=== PATIENT | female | born 1990 | race African-American/Black ===

== ENCOUNTER 2020-01-07 20:40 | Emergency (ER) | payer MEDICAID ==
[~2020-01-07] VITALS: Ht 172.7 cm; Wt 73.0 kg
[2020-01-07] MEDS ORDERED: LIDOCAINE 1%/EPI 1:100,000 10 ML VIAL IJ ONE (21:30)
[2020-01-07] MEDS ORDERED: BACITRACIN ZINC OINT UDPKT TOP ONE (21:30)
[2020-01-07] MEDS ORDERED: LIDOCAINE HCL/EPINEPHRINE 1%-EPI 1:100,000 20 ML VIAL INFIL ONE (21:45)
[2020-01-07] MEDS ORDERED: MORPHINE SULFATE 10 MG/ML CPJ IM ONE (21:45)
[2020-01-07] MEDS ORDERED: CEFAZOLIN 1000MG PREMIX 50 ML IV ONE (21:45)
[2020-01-07] MEDS ORDERED: ONDANSETRON HCL 4MG/2ML INJ IV ONE (21:45)
[2020-01-07] MEDS ORDERED: MORPHINE SULFATE 2 MG/ML CPJ (NOT FOR IM USE) IV ONE (21:45)
[2020-01-07 23:21] LABS: CHLORIDE 108 mEq/L (98-107)
[2020-01-07 23:23] LABS: HCG SCREEN NEGATIVE
[2020-01-08 00:50] VITALS: BP 147/87
== END 2020-01-08 01:12 | disposition home or self-care (01) ==
LOC: ER 20:40
DX: S01.81XA Laceration without foreign body of other part of head, initial encounter (principal); S80.02XA Contusion of left knee, initial encounter; V49.49XA Driver injured in collision with other motor vehicles in traffic accident, initial encounter; Y93.89 Activity, other specified; Y92.89 Other specified places as the place of occurrence of the external cause; Y99.8 Other external cause status; I10 Essential (primary) hypertension
CPT/HCPCS: 12002; 36415; 70450; 70486; 71045; 73562; 80053; 84703; 96365; 96375; 99285; J0690; J2270; J2405; J3490